=== PATIENT | male | born 1940 | race Caucasian/White ===

== ENCOUNTER 2018-03-29 10:20 | Day surgery (SDC) | payer MEDICARE, SELFPAY ==
[2018-03-29] VITALS (7 sets, daily range): BP systolic 105–116; BP diastolic 59–84; PULSE 53–81; RESP 16; TEMP 36.2–36.9; O2SAT 92–96; BMI 25.9
--- NOTE | 2018-03-29 10:32 | EKG12_ITS ---
Test Reason : PREOP Blood Pressure : / mmHG Vent. Rate : 083 BPM Atrial Rate : 394 BPM P-R Int : 000 ms QRS Dur : 090 ms QT Int : 374 ms P-R-T Axes : 000 -33 -13 degrees QTc Int : 439 ms Atrial fibrillation with premature ventricular or aberrantly conducted complexes Left axis deviation Nonspecific ST abnormality , probably digitalis effect Abnormal ECG Confirmed by KANE MARTINEZ, MINDY ([id number]), script editor BRICE LOZADA ([id number]) on 04/03/2018 4:08:41 PM Referred By: Parth Boyer Confirmed By:MINDY MIDDLETON MD
[2018-03-29 10:52] LABS: Hematocrit 48.5 % (40-54); Mean Corpuscular Hgb 30.5 pg (27.0-32.0); Mean Corpuscular Volume 92.6 fL (80-94); Mean Platelet Vol. 9.8 fl (6.2-12.0); Platelet Count 149 K/mm3 (150-450); RBC Distribution Width CV 12.8 % (11.6-14.6); RBC Distribution Width SD 43.2 fl (35.1-43.9); Red Blood Count 5.24 M/mm3 (4.6-6.2); White Blood Count 7.5 K/mm3 (4.4-11.0)
[2018-03-29 10:54] LABS: Scan Indicated on CBC? Y/N NO
[2018-03-29 11:03] LABS: International Normalized Ratio 1.4; Prothrombin Time (Protime)PT. 16.8 SECONDS (11.7-14.9)
[2018-03-29 11:06] LABS: Anion Gap 6 (5-15); BUN 14 mg/dL (7-18); BUN/Creat Ratio 12.7 RATIO (10-20); Chloride 107 mmol/L (98-107); EST Glomerular Filtration Rate 69 mL/min (>60); Est Glom Filt Rate - Afr Amer 83 mL/min (>60); Estimated Creatinine Clearance 58.07 ml/min; Glucose 93 mg/dL (74-106); Sodium Level 144 mmol/L (136-145)
--- NOTE | 2018-03-29 11:57 | PCM.DC.GS ---
Discharge Diet: Light diet - advance as tolerated - if you have questions about your diet instructions, please talk to you doctor. Discharge Activity: May not drive while taking narcotic pain medications., May Not Shower May shower in (days): 7 - after drain removed Lifting Restrictions: 10 pounds Additional Activity Instructions:: Drain care as instructed. Please keep the right chest dressings clean and dry. Call your doctor if your incision/area has: Continuous Slow Oozing, Sudden Increased Bleeding, Increased Pain/ Swelling, Increased Redness, Foul Smelling Discharge Call your doctor if you observe: Fever of 101 or Higher Suture Line Care: Avoid Pulling/Pushing, Avoid Pinching/Bending Additional Dressing/Incision Instructions:: Empty, measure and record the drain output and bring that into your office visit. You may remove the dressing if there is signs of irritation and then cleanse the drain site with a Q-tip and peroxide and reapply a dry gauze dressing. You may resume your Coumadin on , March 30, 2018 Allergies/Adverse Reactions: Allergies bee venom protein (honey bee) Allergy (Verified 03/29/18 10:47) Swelling Sulfa (Sulfonamide Antibiotics) Allergy (Verified 03/29/18 10:47) Hives Medications to take at Discharge Donepezil HCl [Aricept] 5 mg PO QHS 06/01/13 biotin 5,000 mcg disintegrating tablet 5,000 mcg PO QDAY 03/08/18 lactobacillus combination no.8 3 billion cell capsule 1 cap PO QDAY 03/08/18 multivitamin capsule 1 cap PO QDAY 03/08/18 omega-3 fatty acids 1,000 mg capsule 1,000 mg PO QDAY 03/08/18 saw palmetto 500 mg capsule 160 mg PO DAILY 03/08/18 simvastatin 10 mg tablet 10 mg PO QPM 03/08/18 vitamin E 200 unit capsule 400 unit PO QDAY 03/08/18 warfarin 5 mg tablet 5 mg PO MOFR 03/08/18 Calcium Citrate/Magnesium/D3 [Calcium Citrate Chewable Wafer] 1 each PO BID 03/22/18 Diltiazem CD [Cardizem CD] 120 mg PO QHS 03/22/18 Warfarin [Coumadin] 2.5 mg PO SUTUWETHSA 03/22/18 Hydrocodone Bitart/Apap 5-325 [[place] 5MG-325MG] 1 tablet PO Q6H PRN PRN 2 Days #5 tablet 03/29/18 The following prescriptions were given: Hydrocodone Bitart/Apap 5-325 [[place] 5MG-325MG] 1 tablet PO Q6H PRN PRN 2 Days #5 tablet PRN Reason: Pain Primary Care Physician: Roberto Carlos Boyer III, MD [Primary Care Provider] - Test Results: Test results from this visit will be discussed in further detail at your follow-up appointment, if applicable. Please Follow Up With: Parth Boyer MD - [phone] When: Call to make an appointment to be seen on Tuesday
[2018-03-29] MEDS: Bupivacaine Mpf 0.5% 30 ML VIAL (12:09)
--- NOTE | 2018-03-29 12:30 | MASS_PTH ---
PATIENT: JEROMY LOZADA LOC: [facility] [place] U#:[id number] AGE/SX: 77/M ROOM: RE03/29/[address]: Dr. Parth Boyer MD : 1940 BED: DIS: 03/29/2018 SPEC #: [id number] RECD: 03/29/18 14:24 STATUS: MYESHA BRII #: [id number] RASHEED: 03/29/18 12:[address]: Parth Boyer DEPT: SURGICAL PATHOLOGY RECD BY: Arun Camarillo ENTERED: 03/29/18 14:35 SP TYPE: Mass OTHR DR: Dr. Roberto Carlos Boyer III, MD Tissues: Flank, NOS Procedures: Surgery Specimen Level III HEADER OPERATION: Excision subcutaneous mass, right flank PRE-OP DIAGNOSIS: Subcutaneous mass, right flank TISSUE SUBMITTED: Subcutaneous mass right flank, suture enrique lateral aspect of transverse ellipse MICROSCOPIC DIAGNOSIS Subcutaneous mass, right flank, excision: Consistent with fibrolipoma. SJ:aarti 03/31/18 COMMENT Case has been reviewed in consultation with Dr. Harvey who concurs with the above diagnosis. IDC:AM MICROSCOPIC DESCRIPTION Slides are reviewed. GROSS DESCRIPTION Received in fixative is one container labeled with the patient's name and designated right subcutaneous mass, suture in lateral aspect of transverse ellipse. The specimen consists of a piece of lobulated adipose tissue measuring 15 x 13 x 8 cm. The overlying skin ellipse measures 13 x 2 cm. The skin ellipse is identified as the lateral margin. The specimen is inked as follows: superior margin ? blue, inferior margin ? green, anterior surface ? yellow, posterior surface ? black, medial margin ? red, lateral margin ? orange. Sections reveal yellow adipose cut surfaces without area of hemorrhage, necrosis or cystic degeneration. Paperhanger Supervisor sections are submitted in eight cassettes. Cassette 4 contains the overlying skin. Sections will be submitted after additional fixation. / PREM:aarti 03/29/18 TC:1 CPT: 03708
--- NOTE | 2018-03-29 13:17 | PCM.OPRPT ---
Problem List (1) Mass of subcutaneous tissue of back Status: Acute Report of Operation Date of Procedure: 03/29/18 Pre-Operative Diagnosis: Right flank large subcutaneous mass Post-Operative Diagnosis: Large right flank subcutaneous mass Surgery/Procedure Performed:: Excision large right flank subcutaneous mass Description of Surgical Findings:: Timeout informed consent was obtained. 77-year-old gentleman was taken the operating. He was placed in the left lateral decubitus position. He underwent monitored anesthesia care with local anesthetic. The right flank was sterilely prepped and draped. 20 cc of 0.5% lidocaine and 18 cc of 50-50 mixture of 1% lidocaine mixed with 0.5% Marcaine was used as local anesthetic. A wide circumferential block of the area was performed. A transverse slightly oblique elliptical excision including skin was performed and then electrocautery was used to perform the majority of the dissection. The mass measured 14 x 12 x 4 cm. Hemostasis was then obtained with multiple interrupted 3-0 Vicryl and electrocautery were needed. The flaps then were secured to the chest wall with multiple interrupted 3-0 Vicryl sutures. A 10 round ISIDRO drain was placed also to the subcutaneous wound and exited through a stab incision inferior and lateral to the incision. It was secured skin with interrupted 3-0 nylon. The drain was shortened to length as appropriate. The wound was then further closed in layers with the subcutaneous sutures of interrupted 3-0 Vicryl. The skin edges were approximated with multiple simple and mattress sutures of 3-0 nylon. Telfa 4 x 4 pressure dressing applied. Sponge and instrument and needle count were reported to the surgeon to be correct. Blood loss was minimal. He tolerated the procedure well was taken to the recovery room in satisfactory condition without apparent complication. Specimens includes a large right subcutaneous mass. Drains 10 round ISIDRO. Blood loss minimal. Parth Boyer M.D., F.A.C.S. Type of Anesthesia:: Local MAC Anesthesiologist: David Aguirre
== END 2018-03-29 15:18 | disposition home or self-care (01) ==
LOC: SDC 10:21 → AC 10:25
PROVIDERS: Family Provider Family Medicine; PCP Family Medicine; Visit Provider Surgery
PROC: (CPT 21931; principal; 2018-03-29 12:15)
DX: D17.1 Benign lipomatous neoplasm of skin and subcutaneous tissue of trunk (principal); I48.91 Unspecified atrial fibrillation; E78.5 Hyperlipidemia, unspecified; G47.30 Sleep apnea, unspecified; Z87.891 Personal history of nicotine dependence; Z79.01 Long term (current) use of anticoagulants; Z79.899 Other long term (current) drug therapy
CPT/HCPCS: 00300; 21931; 36415; 80048; 85027; 85610; 88304; 88305; 93005; J7120

== ENCOUNTER → 2019-01-17 10:06 | Outpatient (CLI) | payer MEDICARE, SELFPAY ==
[2018-03-29 10:54] VITALS: BMI 25.9
[2019-01-17 10:41] LABS: International Normalized Ratio 2.4; Prothrombin Time (Protime)PT. 26.2 SECONDS (11.7-14.9)
== END ==
PROVIDERS: Family Provider Family Medicine; PCP Family Medicine; Referring Provider Family Medicine; Visit Provider Family Medicine
DX: I48.91 Unspecified atrial fibrillation (principal)
CPT/HCPCS: 85610

== ENCOUNTER → 2019-04-06 13:55 | Outpatient (CLI) | payer MEDICARE, SELFPAY ==
[2019-03-20 13:30] VITALS: BMI 25.1
--- NOTE | 2019-04-06 13:57 | ECHOD_ITS ---
Reason For Study: Afib/Flutter Procedure This was a 2D Doppler, Color Flow transthoracic echocardiogram. Contrast injection was performed. Exam performed in department. Left Ventricle Normal size and thickness. The estimated ejection fraction is 65 %. Unable to assess diastolic dysfunction. No regional wall motion abnormalities noted. Right Ventricle Moderately dilated right ventricle. Normal systolic function. Atria The left atrium is severely enlarged. The right atrium is severely enlarged. Normal atrial septum. Bubble contrast study negative for right to left interatrial shunt. Mitral Valve Mild focal mitral valve thickening. Mild (1+) mitral valve insufficiency. Tricuspid Valve Normal tricuspid valve. Trivial tricuspid valve insufficiency. Right ventricular systolic pressure estimated to be 36 mmHg. Aortic Valve Trisinus/trileaflet aortic valve. Mild focal aortic valve thickening. Trivial aortic valve insufficiency. Pulmonic Valve Normal pulmonic valve. Mild (1+) pulmonic valve insufficiency. Great Vessels Normal aortic root. Mild atherosclerosis of the aortic arch. Normal inferior vena cava. Inferior vena cava collapse with sniff. Pericardium/Pleural No pericardial effusion. Medication 22 gauge I.V. with prn adaptor inserted into right arm. Performed a rapid injection of agitated mix of 9 cc saline and 1cc air to assess for atrial septal defect. MMode/2D Measurements & Calculations LVIDd: 4.2 cm IVSd: 1.2 cm Ao root diam: 3.5 cm LVIDs: 2.7 cm LVPWd: 1.2 cm LA dimension: 4.2 cm RVDd: 4.0 cm FS: 35.5 % LAV(MOD-bp): 72.8 ml LA A4 area: 24.5 cm2 RA A4 area: 22.7 cm2 LAV(MOD-bp) Indexed: 36.9 ml/m2 LAV(MOD-sp2): 72.8 ml LAV(MOD-sp4): 73.2 ml Time Measurements MV dec time: 0.23 sec Doppler Measurements & Calculations MV E max mateusz: 119.7 cm/sec Lat Peak E' Mateusz: 9.9 cm/sec Med Peak E' Mateusz: 6.6 cm/sec MV A max mateusz: 24.3 cm/sec E/E' lat: 12.1 E/E' med: 18.0 MV E/A: 4.9 MV V2 max: 121.3 cm/sec MV P1/2t max mateusz: 122.3 cm/sec Ao V2 max: 106.4 cm/sec MV max P.9 mmHg MV P1/2t: 99.2 msec Ao max P.5 mmHg MV V2 mean: 61.1 cm/sec MV dec slope: 361.1 cm/sec2 Ao V2 mean: 80.4 cm/sec MV mean P.9 mmHg Ao mean P.8 mmHg MV V2 VTI: 29.9 cm MVA(P1/2t): 2.2 cm2 Ao V2 VTI: 20.9 cm AI max mateusz: 358.1 cm/sec LV V1 max: 90.1 cm/sec MR max mateusz: 444.7 cm/sec AI max P.3 mmHg LV V1 max P.2 mmHg MR max P.1 mmHg AI dec slope: 152.9 cm/sec2 LV V1 mean P.5 mmHg MR mean mateusz: 354.8 cm/sec AI P1/2t: 685.8 msec LV V1 mean: 56.2 cm/sec MR mean P.9 mmHg LV V1 VTI: 17.6 cm MR VTI: 143.0 cm PA V2 max: 97.3 cm/sec TR max mateusz: 230.1 cm/sec PI dec slope: 191.6 cm/sec2 TR max P.2 mmHg Interpretation Summary The estimated ejection fraction is 65 %. Unable to assess diastolic dysfunction. Moderately dilated right ventricle. The left atrium is severely enlarged. The right atrium is severely enlarged. Bubble contrast study negative for right to left interatrial shunt. Mild (1+) mitral valve insufficiency. Trivial tricuspid valve insufficiency. Right ventricular systolic pressure estimated to be 36 mmHg. Trivial aortic valve insufficiency. Compared to echo report dated 03/13/2010, LV function has remained the same, but AI has improved from 1-2+ to trivial AI. Pt appears to be in atrial fibrillation. Ordering Physician: Vish Zavala Referring Physician: ANA Boyer M.D. Performed By: Matt Delatorre RCS
== END ==
PROVIDERS: Family Provider Family Medicine; PCP Family Medicine; Referring Provider Internal Medicine Cardiovascular Disease; Visit Provider Internal Medicine Cardiovascular Disease
DX: I48.91 Unspecified atrial fibrillation (principal); E78.5 Hyperlipidemia, unspecified; G47.33 Obstructive sleep apnea (adult) (pediatric); Z79.01 Long term (current) use of anticoagulants
CPT/HCPCS: 93306; A4216

== ENCOUNTER → 2019-04-11 09:29 | Outpatient (CLI) | payer MEDICARE, SELFPAY ==
[2019-03-20 13:30] VITALS: BMI 25.1
--- NOTE | 2019-04-11 09:30 | STEWCON_ITS ---
Reason For Study: Atrial Fibrillation Stress Results Protocol: Venu Protocol Maximum Predicted HR: 142 bpm Target HR: 121 bpm % Maximum Predicted HR: 106 % DurationHeart Rate Stage (mm:ss) (bpm) BP Comment Baseline 86 118/76No Chest Pain; Diluted Definity 2 ML Given Venu Protocol Stage I 3:00 130 124/76No Chest Pain Venu Protocol Stage II 3:00 150 130/64No Chest Pain Venu Protocol Stage III 0:30 142 / No Chest Pain Recovery 92 102/60No Chest Pain Stress Duration: 6:30 mm:ss Maximum Stress HR: 150 bpm METS: 8 Baseline Echocardiogram Findings The estimated ejection fraction is 65 %. Stress Echo Wall motion Data Resting WM Intermediate WM Stress WM Resting Wall Motion Wall Motion Stress No regional wall motion No regional wall motion abnormalities noted. abnormalities noted. EKG Data Atrial fibrillation with controlled ventricular response. The patient exercised according to the regular Venu protocol for a total duration of 6:30. The maximum heart rate attained was 153 beats per minute. This was 107% of maximum predicted heart rate. The patient exercised into stage 3 of the Venu protocol. During stress, there were no ST or T wave changes noted to suggest ischemia. No clinical angina was noted. Interpretation Summary The estimated ejection fraction is 65 %. Normal, adequate, treadmill echocardiogram. Negative for ischemia by EKG and echocardiographic criteria. No anginal symptoms noted. Patient had baseline atrial fibrillation which persisted throughout the study. Rare PVCs versus aberrant beats at peak exercise. Appropriate blood pressure response to exercise. Average exercise capacity for age. Final LVEF of 75%. Test terminated due to fatigue. Decreased sensitivity due to poor echo windows requiring Definity agent as well as atrial fibrillation. No complications. The study was technically difficult. Contrast injection was performed. Ordering Physician: Vish Zavala Referring Physician: Roberto Carlos Boyer III Performed By: Sharon Leone, [place], RVT
== END ==
PROVIDERS: Family Provider Family Medicine; PCP Family Medicine; Referring Provider Internal Medicine Cardiovascular Disease; Visit Provider Internal Medicine Cardiovascular Disease
DX: I48.91 Unspecified atrial fibrillation (principal); I48.92 Unspecified atrial flutter; I35.1 Nonrheumatic aortic (valve) insufficiency; E78.5 Hyperlipidemia, unspecified; G47.33 Obstructive sleep apnea (adult) (pediatric); Z79.01 Long term (current) use of anticoagulants
CPT/HCPCS: 93017; 93350; Q9957; A4216; C8928

== ENCOUNTER → 2019-10-15 09:15 | Outpatient (CLI) | payer MEDICARE, SELFPAY ==
[2019-10-05 13:27] VITALS: BMI 25.2
[2019-10-15 10:46] LABS: AST(SGOT) 20 U/L (15-37); Alanine Aminotransfer ALT/SGPT 25 U/L (16-61); Albumin, Serum 3.6 g/dL (3.2-5.0); Alkaline Phosphatase 65 U/L (45-117); Bilirubin, Direct 0.18 mg/dL (0.00-0.30); Cholesterol 175 mg/dL (200); Globulin 3.5 g/dL (2.2-4.2); High Density Lipoprotein 53 mg/dL; Protein, Total 7.1 g/dL (6.4-8.2); Triglycerides 92 mg/dL; Very Low Density Lipoprotein 18 mg/dL (5-40)
== END ==
PROVIDERS: PCP Family Medicine; Referring Provider Internal Medicine Cardiovascular Disease; Visit Provider Internal Medicine Cardiovascular Disease
DX: E78.5 Hyperlipidemia, unspecified (principal)
CPT/HCPCS: 36415; 80061; 80076

== ENCOUNTER → 2020-12-03 09:19 | Outpatient (CLI) | payer MEDICARE, SELFPAY ==
[2020-10-24 13:17] VITALS: BMI 25.0
== END ==
PROVIDERS: PCP Family Medicine; Referring Provider Nurse Practitioner Family; Visit Provider Nurse Practitioner Family
DX: I48.91 Unspecified atrial fibrillation (principal); R00.0 Tachycardia, unspecified
CPT/HCPCS: 93225; 93226

== ENCOUNTER 2021-05-26 06:25 | Day surgery (SDC) | payer MEDICARE, SELFPAY ==
[2021-05-26] VITALS (7 sets, daily range): BP systolic 89–110; BP diastolic 66–86; PULSE 50–79; RESP 16; TEMP 36.2–36.9; O2SAT 95–99; BMI 23.8
--- NOTE | 2021-05-26 06:54 | HP.PCM_ITS ---
History and Physical Date of Admission: 05/26/21 Visit Reasons: C-Scope Chief Complaint: c-scope Gas Meter Reader Required: No Is patient in pain?: No Allergies bee venom protein (honey bee) Allergy (Severe, Verified 05/19/21 13:20) Anaphylaxis Sulfa (Sulfonamide Antibiotics) Allergy (Severe, Verified 05/19/21 13:20) Hives atorvastatin [From Lipitor] Adverse Reaction (Severe, Verified 05/19/21 13:20) Myalgias, Rash rivastigmine [From Exelon] Adverse Reaction (Severe, Verified 05/19/21 13:20) Mental status change Medications donepezil 5 mg PO QHS 06/01/13 [History Confirmed 05/19/21] lactobacillus combination no.8 3 billion cell capsule 1 cap PO QDAY 03/08/18 [History Confirmed 05/19/21] multivitamin 1 cap PO QDAY 03/08/18 [History Confirmed 05/19/21] omega-3 fatty acids 1,000 mg capsule 1,000 mg PO QDAY 03/08/18 [History Confirmed 05/19/21] simvastatin 10 mg tablet 10 mg PO QPM 03/08/18 [History Confirmed 05/19/21] ascorbate calcium (vitamin C) 500 mg tablet 500 mg PO DAILY 03/14/19 [History Confirmed 05/19/21] saw palmetto 160 mg capsule 160 mg PO DAILY cap 03/14/19 [History Confirmed 05/19/21] biotin 5,000 mcg disintegrating tablet 10,000 mcg PO DAILY 03/20/19 [History Confirmed 05/19/21] vitamin E (dl, acetate) 180 mg (400 unit) capsule 400 unit PO DAILY 03/20/19 [History Confirmed 05/19/21] vitamins-lipotropics 200 mg-100 mg tablet tab PO tab 03/20/19 [History Confirmed 05/19/21] selenium 100 mcg tablet 100 mcg PO DAILY #1 tab 04/18/20 [Rx Confirmed 05/19/21] calcium carb-magnesium oxide-vit D3 400 mg-167 mg-133 unit tablet tab PO 10/24/20 [History Confirmed 05/19/21] diltiazem HCl 120 mg capsule,extended release 24 hr 120 mg PO QHS #90 cap 01/14/21 [Rx Confirmed 05/19/21] warfarin 5 mg tablet 5 mg PO .COMPLEX tab 04/14/21 [History Confirmed 05/19/21] PFSH Medical History Diverticulosis of colon Hemorrhoids Hyperlipidemia FPC current use of anticoagulant Longstanding persistent atrial fibrillation Memory loss Mild cognitive impairment Obstructive sleep apnea Surgical History History of appendectomy History of cataract surgery History of colonoscopy Family History Father Cancer lung Grandfather CAD (coronary artery disease) Social History Smoking Status: Former smoker how long ago did patient quit smokin + years ago alcohol intake: never substance use type: does not use caffeine: Yes Type: coffee Number of servings: 4 HPI HPI HPI: JEROMY LOZADA, is a 80 M who presents to the office today for surgical consultation regarding colonoscopy. The patient is referred by Dr. Asa cox and a written copy of my surgical consult recommendations will return to him. My most recent assistance with the patient was March 29, 2018 where I removed a subcutaneous lipoma from his back. May 06, 2016 he had a colonoscopy because of a personal history of colon polyps. That was performed by Dr. Manuel Schmitt. A 15 mm polyp was seen in the mid ascending colon. A 5 mm polyp in the proximal transverse colon. Diverticulosis identified. 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 The mid ascending colon polyp was a tubulovillous adenoma. The proximal transverse colon polyp with tubular adenoma. It is of note that the patient is on chronic Coumadin therapy for chronic atrial fibrillation. Dr. Tadeo Kaye is his ware carrier. It is of note that for over 5 years the patient has had very loose stools. He has urgency need to go to the bathroom. He will need to be close to the restroom. Both the patient and his state that he never was on any treatment for his collagenous colitis. He denies any bright red blood per rectum. ROS General General: Yes fatigue; No weight change, appetite, colon cancer, breast cancer or weakness HEENT HEENT: No difficulty swallowing, eye injury, eye surgery, swollen glands or hoarseness Endo Endocrine: No thyroid disease, diabetes mellitus, thyroid cancer, Hair loss, heat intolerance or cold intolerance Skin Skin: No rash or changing moles Breast Breast: No left breast lump, right breast lump, nipple discharge, breast pain, abnormal mammogram, abnormal US or breast enlargement Musc Musculoskeletal: No back problems, arthritis, rheumatoid arthritis, gout or joint pain Cardio Cardiovascular: Yes atrial fibrillation; No murmur, pacemaker, heart disease, high blood pressure, heart attack, heart stent, palpitations, shortness of breat with exertion or chest pain Psych Psychiatric: No depression, anxiety or hearing voices Resp Respiratory: No shortness of breath, No sleep apnea, No cough, No COPD, No asthma, No emphysema and No wheezing Gastro Gastrointestinal: No abdominal pain, No nausea or vomiting, No diarrhea, No constipation, No blood in stool, No acid reflux, No hemorrhoids, No ulcers, No gallbladder problem and No black,tarry stools Clay Hematologic: Yes blood thinners, No blood disorders, No bleeding, No anemia and No blood clots Neuro Neurologic: No system reviewed and no additional complaints, except as documented, No as per HPI, No abnormal gait, No abnormal hearing, No abnormal movements, No abnormal speech, No behavioral changes, No burning sensations, No confusion, No convulsions, No disequilibrium, No dizziness, No localized weakness, No frequent falls, No headache(s), No lack of coordination, No loss of vision, No memory loss, No numbness, No other visual disturbances, No radicular pain, No restless legs, No sensory deficit, No syncope, No tingling, No tremor(s), No weakness and No other Exam Const General: cooperative and comfortable Nutritional Appearance: average body habitus Orientation: alert and awake [facility] Head: normal to inspection Chest Chest palpation & inspection: normal inspection of the chest Resp Effort & Inspection: normal respiratory effort Auscultation: clear to auscultation bilaterally Cardio Rate: regular rate Rhythm: regular rhythm GI Palpation: soft and no hepatosplenomegaly Auscultation: normal bowel sounds Musc Cervical Spine: normal cervical lordosis Neuro General: patient alert and patient awake Extrem General: no calf tenderness Psych Appearance: grossly normal Assessment and Plan Assessment and Plan (1) Personal history of colonic polyps: Status: Acute (2) Collagenous colitis: Status: Acute (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 Parth Boyer MD: Patient has a urgent postprandial stools and looser diarrheal stools. He has had previous biopsy-proven collagenous colitis but has never been on medical treatment. He has had a tubulovillous adenoma of the ascending colon as well as additional tubular adenomas. He is on warfarin for chronic anticoagulation for atrial fibrillation I recommend that he hold his warfarin for 4 days. I recommend a colonoscopy with possible biopsy or polypectomy as indicated. Because of his medical comorbidities I anticipate utilizing monitored anesthesia care. Because of his previous biopsy-proven collagenous colitis and ongoing bowel complaints I recommend random colonic biopsies as well. He has had an opportunity to ask and have questions answered. I very much appreciate the kind opportunity of assisting with surgical care. Copy: Dr. Asa Boyer M.D., F.A.C.S. I have re-examined the patient. There are no clinical changes since date of exam.
[2021-05-26 06:55] LABS: INR Fingerstick 1.2; Prothrombin Time Fingerstick 14.3 SEC (11.9-14.4)
[2021-05-26] MEDS: Lactated Ringers 1,000 ML 100 ML IV (07:14)
--- NOTE | 2021-05-26 07:30 | COLBX_PTH ---
PATIENT: JEROMY LOZADA LOC: [facility] U#:[id number] AGE/SX: 80/M ROOM: RE05/26/[address]: Dr. Parth Boyer MD : 1940 BED: DIS: 05/26/2021 SPEC #: [id number] RECD: 05/26/21 09:15 STATUS: MYESHA BRII #: [id number] RASHEED: 05/26/21 07:[address]: Parth Boyer DEPT: SURGICAL PATHOLOGY RECD BY: Lily De Luna ENTERED: 05/26/21 12:03 SP TYPE: COLON BX ULICES DR: Dr. Asa Gonsalez MD Tissues: A - COLON BIOPSY B - Ascending colon C - Transverse colon Procedures: Trichrome (control) Special Stain Group II Surgery Specimen Level IV HEADER OPERATION: Colonoscopy (MAC) PRE-OP DIAGNOSIS: History of polyps, collagenous colitis TISSUE SUBMITTED: A ? Random biopsies, B ? Proximal ascending colon polyp, C ? Mid transverse colon polyp MICROSCOPIC DIAGNOSIS A. Colon, random biopsy: Fragments of colonic mucosa with changes consistent with collagenous colitis. See comment. B. Proximal ascending colon polyp, biopsy: Fragments of tubular adenoma. C. Mid transverse colon polyp, biopsy: Fragments of tubular adenoma. SJ:rg 05/27/2021 COMMENT A. Trichrome stain with matched control is used in the evaluation of the specimen and shows thickening of subepithelial collagen band, consistent with collagenous colitis. MICROSCOPIC DESCRIPTION Slides are reviewed. GROSS DESCRIPTION A - Received in fixative is one container labeled with the patient's name and designated random biopsy. The specimen consists of multiple irregular fragments of light mcgowan soft tissue that in aggregate measure 2 x 0.5 x 0.1 cm. The specimen is totally submitted in one cassette. B - Received in fixative is one container labeled with the patient's name and designated proximal ascending colon polyp. The specimen consists of multiple irregular fragments of light mcgowan soft tissue that in aggregate measure 2 x 0.5 x 0.1 cm. The specimen is totally submitted in one cassette. C - Received in fixative is one container labeled with the patient's name and designated mid transverse colon polyp. The specimen consists of two irregular fragments of light mcgowan soft tissue that in aggregate measure 1 x 0.2 x 0.1 cm. The specimen is totally submitted in one cassette. / AM:aarti 05/26/21 TC:1 CPT: 87259 x3, 73031
--- NOTE | 2021-05-26 08:01 | OP.COLON_ITS ---
Patient Name: Roni Lyles Procedure Date: 05/26/2021 7:31 AM Date of : 1940 Age: 80 Procedure: Colonoscopy Indications: High risk colon cancer surveillance: Personal history of colonic polyps Providers: Parth Boyer MD Medicines: See the Anesthesia note for documentation of the administered medications Patient Profile: Last Colonoscopy: April 2016. Complications: No immediate complications. Procedure: Pre-Anesthesia Assessment: - Prior to the procedure, a History and Physical was performed, and patient medications and allergies were reviewed. The patient's tolerance of previous anesthesia was also reviewed. The risks and benefits of the procedure and the sedation options and risks were discussed with the patient. All questions were answered, and informed consent was obtained. Prior Anticoagulants: The patient has taken Coumadin (warfarin), last dose was 4 days prior to procedure. ASA Grade Assessment: III - A patient with severe systemic disease. After reviewing the risks and benefits, the patient was deemed in satisfactory condition to undergo the procedure. After I obtained informed consent, the scope was passed under direct vision. Throughout the procedure, the patient's blood pressure, pulse, and oxygen saturations were monitored continuously. The pediatric colonoscope was introduced through the anus and advanced to the cecum, identified by appendiceal orifice and ileocecal valve. The colonoscopy was performed without difficulty. The patient tolerated the procedure well. The quality of the bowel preparation was good. The ileocecal valve and the appendiceal orifice were photographed. Scope In: 7:38:15 AM Scope Withdrawal Time 0 hours 11 minutes 44 seconds Scope Out: 7:54:21 AM Total Procedure Duration Time 0 hours 16 minutes 6 seconds Findings: The digital rectal exam findings include anal stricture. Pertinent negatives include normal prostate (size, shape, and consistency). A 10 mm polyp was found in the proximal ascending colon. The polyp was sessile. The polyp was removed with a hot snare. Resection and retrieval were complete. A 8 mm polyp was found in the mid transverse colon. The polyp was sessile. The polyp was removed with a hot snare. Resection and retrieval were complete. Multiple diverticula were found in the sigmoid colon and descending colon. Biopsies for histology were taken with a cold forceps from the entire colon for evaluation of microscopic colitis. Impression: - Anal stricture found on digital rectal exam. - One 10 mm polyp in the proximal ascending colon, removed with a hot snare. Resected and retrieved. - One 8 mm polyp in the mid transverse colon, removed with a hot snare. Resected and retrieved. - Diverticulosis in the sigmoid colon and in the descending colon. - Biopsies were taken with a cold forceps from the entire colon for evaluation of microscopic colitis. Recommendation: - Discharge patient to home. - Resume previous diet. - Continue present medications. - Telephone my office for pathology results in 1 week. - Repeat colonoscopy in 5 years for surveillance. Procedure Code(s): --- Professional --- 54173, Colonoscopy, flexible; with removal of tumor(s), polyp(s), or other lesion(s) by snare technique 04005, 59, Colonoscopy, flexible; with biopsy, single or multiple Diagnosis Code(s): --- Professional --- Z86.010, Personal history of colonic polyps K62.4, Stenosis of anus and rectum D12.2, Benign neoplasm of ascending colon D12.3, Benign neoplasm of transverse colon (hepatic flexure or splenic flexure) K57.30, Diverticulosis of large intestine without perforation or abscess without bleeding CPT copyright 2017 [employer]. All rights reserved. The codes documented in this report are preliminary and upon draw frame operator review may be revised to meet current compliance requirements. Parth Boyer MD 05/26/2021 8:00:26 AM This report has been signed electronically. Number of Addenda: 0 Note Initiated On: 05/26/2021 7:31 AM
--- NOTE | 2021-05-26 08:02 | OP.CCLET_ITS ---
05/26/2021 Asa Gonsalez [address] [place] [address] Re : Colonoscopy procedure for Roni Lyles Dear Dr. Gonsalez This procedure was performed on Wednesday, May 26, 2021. My impressions and recommendations are as follows: Impressions : - Anal stricture found on digital rectal exam. - One 10 mm polyp in the proximal ascending colon, removed with a hot snare. Resected and retrieved. - One 8 mm polyp in the mid transverse colon, removed with a hot snare. Resected and retrieved. - Diverticulosis in the sigmoid colon and in the descending colon. - Biopsies were taken with a cold forceps from the entire colon for evaluation of microscopic colitis. Recommendations : - Discharge patient to home. - Resume previous diet. - Continue present medications. - Telephone my office for pathology results in 1 week. - Repeat colonoscopy in 5 years for surveillance. My findings are described in the full procedure note, which is enclosed. If I can be of further assistance, please feel free to contact me at Doctor phone number(s): Work: . Sincerely, Parth Boyer MD 05/26/2021 8:00:26 AM This report has been signed electronically.
== END 2021-05-26 08:56 | disposition home or self-care (01) ==
LOC: EN 06:27 → AC 06:27
PROVIDERS: PCP Family Medicine; Referring Provider Family Medicine; Visit Provider Surgery
PROC: 0DJD8ZZ Inspection of Lower Intestinal Tract, Via Natural or Artificial Opening Endoscopic (ICD-10-PCS; CPT 45378; principal; 2021-05-26 07:25)
DX: Z12.11 Encounter for screening for malignant neoplasm of colon (principal); K62.4 Stenosis of anus and rectum; D12.2 Benign neoplasm of ascending colon; D12.3 Benign neoplasm of transverse colon; K52.831 Collagenous colitis; K57.30 Diverticulosis of large intestine without perforation or abscess without bleeding; I48.11 Longstanding persistent atrial fibrillation; E78.00 Pure hypercholesterolemia, unspecified; G47.33 Obstructive sleep apnea (adult) (pediatric); Z79.01 Long term (current) use of anticoagulants; Z79.899 Other long term (current) drug therapy; Z86.010 Personal history of colon polyps; Z87.891 Personal history of nicotine dependence
CPT/HCPCS: 45380; 45385; 36416; 85610; 88305; 88313; J7120; J2405

== ENCOUNTER → 2023-06-01 | Outpatient (CLI) | payer MEDICARE, SELFPAY ==
--- NOTE | 2023-06-01 07:24 | ECHOD_ITS ---
Reason For Study: AFIB Procedure This was a 2D Doppler, Color Flow transthoracic echocardiogram. Exam performed in department. Left Ventricle Normal LV size. Left ventricular systolic function is normal. The estimated ejection fraction is 60 %. No regional wall motion abnormalities noted. Right Ventricle Normal RV size. Normal systolic function. Atria The left atrium is moderately enlarged. The right atrium is mildly enlarged. Mitral Valve Bileaflet diffuse mitral valve thickening. There is mild to moderate mitral annular calcification. Mild-Moderate (1-2+) eccentric mitral valve insufficiency. Tricuspid Valve Normal tricuspid valve. Mild (1+) tricuspid valve insufficiency. Pulmonary artery systolic pressure is 38 mmHg. Aortic Valve Normal aortic valve. Trisinus/trileaflet aortic valve. Mild (1+) aortic valve insufficiency. Pulmonic Valve Normal pulmonic valve. Mild (1+) pulmonic valve insufficiency. Great Vessels Normal aortic root. The pulmonary artery is normal size. Normal inferior vena cava. Pericardium/Pleural No pericardial effusion. MMode/2D Measurements & Calculations LVIDd: 4.6 cm IVSd: 0.96 cm Ao root diam: 3.6 cm LVIDs: 2.4 cm LVPWd: 1.4 cm RVDd: 4.2 cm FS: 47.5 % LAV(MOD-bp): 95.3 ml LVAd ap4: 27.3 cm2 SV(MOD-sp4): 45.1 ml LAV(MOD-bp) Indexed: 48.3 ml/m2 LVLd ap4: 7.8 cm LAV(MOD-sp2): 82.9 ml EDV(MOD-sp4): 79.6 ml LAV(MOD-sp4): 100.0 ml EDV(sp4-el): 81.3 ml LVAs ap4: 15.9 cm2 LVLs ap4: 6.2 cm ESV(MOD-sp4): 34.5 ml ESV(sp4-el): 34.4 ml EF(MOD-sp4): 56.7 % EF(sp4-el): 57.6 % SV(sp4-el): 46.9 ml LA A4 area: 29.5 cm2 LA dimension(2D): 4.3 cm RA A4 area: 23.4 cm2 TAPSE: 1.7 cm Doppler Measurements & Calculations MV E max isidra: 124.2 cm/sec Ao V2 max: 116.9 cm/sec AI max isidra: 420.0 cm/sec Ao max P.5 mmHg AI max P.6 mmHg Ao V2 mean: 80.8 cm/sec Ao mean P.0 mmHg AI dec slope: 169.0 cm/sec2 Ao V2 VTI: 26.9 cm AI P1/2t: 727.8 msec AV (velocity ratio): 0.72 LV V1 max: 89.4 cm/sec PA V2 max: 80.8 cm/sec LV V1 max P.2 mmHg PA V2 mean: 66.4 cm/sec PI dec slope: 196.1 cm/sec2 LV V1 mean P.8 mmHg LV V1 mean: 62.4 cm/sec LV V1 VTI: 19.2 cm TR max isidra: 288.2 cm/sec TR max P.2 mmHg ECHO/Echo Complete Interpretation Summary Normal LV size. Left ventricular systolic function is normal. The estimated ejection fraction is 60 %. Mild (1+) aortic valve insufficiency. Mild-Moderate (1-2+) eccentric mitral valve insufficiency. Ordering Physician: Tadeo Kaye Referring Physician: MD Sunshine Asa Performed By: Mary Arteaga RCS
--- NOTE | 2023-06-01 07:24 | CDU_ITS ---
Reason For Study: Bruit Rt. Velocities/BP Lt. Velocities/BP Prox CCA 68.3/8.8 cm/sec. Prox CCA 67.4/11.3 cm/sec. Mid CCA 67.4/10.7 cm/sec. Mid CCA 52/12.4 cm/sec. Dist CCA 65.5/9.7 cm/sec. Dist CCA 52/11.3 cm/sec. Prox ICA 28.9/9.2 cm/sec. Prox ICA 49.8/13.5 cm/sec. Mid ICA 65/19.4 cm/sec. Mid ICA 81.7/24.5 cm/sec. Dist ICA 62.1/19.4 cm/sec. Dist ICA 72.9/20.1 cm/sec. Rt. ICA/CCA = 0.96. Lt. ICA/CCA = 1.57. Prox ECA 64.5/3.1 cm/sec. Prox ECA 48.7/2.5 cm/sec. Rt. Vert. 24.9/3.7 cm/sec. Lt. Vert. 39.9/6.9 cm/sec. Right Extracranial There is intimal thickening but no significant atherosclerotic plaque noted in the right common carotid artery. There is homogeneous, smooth atherosclerotic plaque noted in the right internal carotid artery. There is intimal thickening but no significant atherosclerotic plaque noted in the right external carotid artery. Antegrade flow is noted in the right vertebral artery. Left Extracranial There is intimal thickening but no significant atherosclerotic plaque noted in the left common carotid artery. There is homogeneous, smooth atherosclerotic plaque noted in the left internal carotid artery. There is intimal thickening but no significant atherosclerotic plaque noted in the left external carotid artery. Antegrade flow is noted in the left vertebral artery. Procedure Carotid Duplex 63641. This is a Carotid Duplex examination using B-mode, color flow and specral Doppler. Exam performed in department. VL/Carotid Duplex Ultrasound Interpretation Summary Mild (<50%) stenosis right extracranial internal carotid. Mild (<50%) stenosis left extracranial internal carotid. Patent and antegrade vertebrals bilaterally. Ordering Physician: Tadeo Kaye Referring Physician: MD Sunshine Asa Performed By: Esperanza Llanos RVT
== END | disposition home or self-care (01) ==
PROVIDERS: PCP Family Medicine; Visit Provider Internal Medicine Cardiovascular Disease
DX: I48.11 Longstanding persistent atrial fibrillation (principal); R09.89 Other specified symptoms and signs involving the circulatory and respiratory systems
CPT/HCPCS: 93306; 93880

== ENCOUNTER 2024-02-24 06:43 | Day surgery (SDC) | payer MEDICARE, SELFPAY ==
--- NOTE | 2024-02-16 12:46 | EKG12_ITS ---
Test Reason : PRE OP Blood Pressure : / mmHG Vent. Rate : 075 BPM Atrial Rate : 078 BPM P-R Int : 000 ms QRS Dur : 082 ms QT Int : 390 ms P-R-T Axes : 000 -36 -08 degrees QTc Int : 435 ms Atrial fibrillation Left axis deviation Abnormal ECG Confirmed by Wili Pruitt ([id number]), supervising editor trailer PAULA LYNCH ([id number]) on 02/20/2024 9:01:36 AM Referred By: Parth Boyer Confirmed By:Wili Pruitt
[2024-02-16 13:29] LABS: Hematocrit 46.3 % (40-54); Hemoglobin 14.8 g/dL (13.0-16.5); Mean Corpuscular Hgb 30.3 pg (27.0-32.0); Mean Corpuscular Volume 94.7 fL (80-94); Mean Platelet Vol. 10.1 fl (6.2-12.0); Platelet Count 193 K/mm3 (150-450); RBC Distribution Width CV 12.6 % (11.6-14.6); RBC Distribution Width SD 43.7 fl (35.1-43.9); Red Blood Count 4.89 M/mm3 (4.6-6.2); White Blood Count 8.8 K/mm3 (4.4-11.0)
[2024-02-16 14:05] LABS: Anion Gap 3 (5-15); BUN 15 mg/dL (7-18); BUN/Creat Ratio 14.4 RATIO (10-20); Calcium,Total 9.5 mg/dL (8.5-10.1); Chloride 107 mmol/L (98-107); Creatinine, Serum 1.04 mg/dL (0.70-1.30); EST Glomerular Filtration Rate 72 mL/min (>60); Est Glom Filt Rate - Afr Amer 88 mL/min (>60); Glucose 80 mg/dL (74-106); Potassium 3.8 mmol/L (3.5-5.1); Sodium Level 140 mmol/L (136-145)
[2024-02-24] VITALS (16 sets, daily range): BP systolic 111–140; BP diastolic 61–104; PULSE 73–136; RESP 16–18; TEMP 36.1–36.6; O2SAT 89–100; BMI 22.8
[2024-02-24 06:55] LABS: INR Fingerstick 1.2; Prothrombin Time Fingerstick 13.6 SEC (11.7-14.9)
--- NOTE | 2024-02-24 07:21 | PCM.HP.BLA ---
History and Physical Date of Admission: 02/24/24 Intake Visit Reasons: Hernia Chief Complaint: inguinal hernia Elevators Inspector Required: No Is patient in pain?: No Allergies bee venom protein (honey bee) Allergy (Severe, Verified 02/10/24 09:00) AnaphylaxisSulfa (Sulfonamide Antibiotics) Allergy (Severe, Verified 02/10/24 09:00) Hivesatorvastatin (From Lipitor) Adverse Reaction (Severe, Verified 02/10/24 09:00) Myalgias, Rashrivastigmine (From Exelon) Adverse Reaction (Severe, Verified 02/10/24 09:00) Mental status change Medications ?Medication ?Instructions ?Recorded ?Confirmed ?Type donepezil 5 mg tablet 5 mg PO QHS MEMORY 06/01/13 02/10/24 History lactobacillus combination no.8 3 1 cap PO QDAY SUPPLEMENT 03/08/18 02/10/24 History billion cell capsule (Adult Probiotic) multivitamin 1 cap PO QDAY SUPPLEMENT 03/08/18 02/10/24 History omega-3 fatty acids 1,000 mg 1,000 mg PO QDAY SUPPLEMENT 03/08/18 02/10/24 History capsule (Fish Oil Concentrate) simvastatin 10 mg tablet 10 mg PO QPM CHOLESTEROL 03/08/18 02/10/24 History saw palmetto 160 mg capsule 160 mg PO DAILY 03/14/19 02/10/24 History vitamin E (dl, acetate) 180 mg 400 unit PO DAILY 03/20/19 02/10/24 History (400 unit) capsule vitamins-lipotropics 200 mg-100 mg 1 tab PO DAILY 03/20/19 02/10/24 History tablet (Lipo-Flavonoid Plus) selenium 100 mcg tablet 100 mcg PO DAILY #1 TAB 04/18/20 02/10/24 Rx calcium carb-magnesium oxide-vit 1 tab PO DAILY 10/24/20 02/10/24 History D3 400 mg-167 mg-133 unit tablet latanoprost 0.005 % eye drops 1 drp EACH EYE QHS 05/26/21 02/10/24 History cholestyramine (with sugar) 4 gram 1 ea PO DAILY 04/13/22 02/10/24 History powder for susp in a packet warfarin 5 mg tablet (Coumadin) 5 mg PO .COMPLEX BLOOD THINNER 04/13/22 02/10/24 History dorzolamide 22.3 mg-timolol 6.8 1 drp ophthalmic (eye) BID 05/10/23 02/10/24 History mg/mL eye drops diltiazem HCl 120 mg 120 mg PO QHS HEART #90 caps 01/09/24 02/10/24 Rx capsule,extended release 24 hr [facility] Medical History (Updated 02/10/24 @ 09:[address] Parth Boyer MD) Wears hearing aid Wears partial dentures Wears glasses Skin tear High cholesterol Easy bruising Excessive bleeding Back pain History of IBS Colitis Former smoker BiPAP (biphasic positive airway pressure) dependence Sleep apnea Shortness of breath on exertion Leg cramps Normal stress echocardiogram History of echocardiogram History of stress test Cardiology follow-up encounter History of atrial fibrillation Longstanding persistent atrial fibrillation Hemorrhoids Mild cognitive impairment Memory loss Diverticulosis of colon [facility] current use of anticoagulant Obstructive sleep apnea Hyperlipidemia Surgical History Hx of excision of mass History of appendectomy History of colonoscopy History of cataract surgery Family History Father Cancer lungGrandfather CAD (coronary artery disease) Social History Smoking Status: Former smoker how long ago did patient quit smokin + years ago alcohol intake: current Alcohol type: beer substance use type: does not use caffeine: Yes Type: coffee Number of servings: 4 HPI HPI HPI: 83-year-old gentleman is referred by Dr. Asa Gonsalez for surgical consultation regarding an inguinal hernia and a written copy my surgical consult recommendations will return to him. The patient had presented to Dr. Wilson with concerns of a acute 1 week history of right groin pain. It is of note that the patient does have atrial fibrillation is on chronic warfarin anticoagulation. The patient claims that he is only has noticed a bulge for 2 months. He had no history of trauma. He is no no previous hernia repair. Only. Abdominal surgery was a very remote appendectomy through a right lower quadrant oblique incision. He denies myocardial infarction or stroke. No DVT. He has had atrial fibrillation for an extended period of time. She is on chronic Coumadin treatment. He denies dysuria or nocturia ROS General General: Yes fatigue; No weight change, appetite, colon cancer, breast cancer or weakness HEENT HEENT: No difficulty swallowing, eye injury, eye surgery, swollen glands or hoarseness Endo Endocrine: No thyroid disease, diabetes mellitus, thyroid cancer, Hair loss, heat intolerance or cold intolerance Skin Skin: No rash or changing moles Breast Breast: No left breast lump, right breast lump, nipple discharge, breast pain, abnormal mammogram, abnormal US or breast enlargement [facility] [place]: Yes back problems; No arthritis, rheumatoid arthritis, gout or joint pain Cardio Cardiovascular: Yes atrial fibrillation; No murmur, pacemaker, heart disease, high blood pressure, heart attack, heart stent, palpitations, shortness of breat with exertion or chest pain Psych Psychiatric: No depression, anxiety or hearing voices Resp Respiratory: No shortness of breath, Yes sleep apnea, No cough, No COPD, No asthma, No emphysema and No wheezing Gastro Gastrointestinal: No abdominal pain, No nausea or vomiting, No diarrhea, No constipation, No blood in stool, No acid reflux, No hemorrhoids, No ulcers, No gallbladder problem and No black,tarry stools [place] Hematologic: Yes blood thinners, No blood disorders, No bleeding, No anemia and No blood clots Neuro Neurologic: No system reviewed and no additional complaints, except as documented, No as per HPI, No abnormal gait, No abnormal hearing, No abnormal movements, No abnormal speech, No behavioral changes, No burning sensations, No confusion, No convulsions, No disequilibrium, No dizziness, No localized weakness, No frequent falls, No headache(s), No lack of coordination, No loss of vision, No memory loss, No numbness, No other visual disturbances, No radicular pain, No restless legs, No sensory deficit, No syncope, No tingling, No tremor(s), No weakness and No other Exam Const General: cooperative, healthy appearing, comfortable and no acute distress [facility] Head: normal to inspection Eyes General: appearance normal, both eyes and all related structures Neck Neck: normal visual inspection Chest Chest palpation & inspection: normal inspection of the chest Resp Effort & Inspection: normal respiratory effort Auscultation: clear to auscultation bilaterally Cardio Rate: regular rate Rhythm: regular rhythm GI Inspection: normal to inspection Palpation: soft and no hepatosplenomegaly Other: Obvious sizable right inguinal hernia. It is reducible when supine. Testicles descended bilaterally. Left groin appears to be solid and intact Musc Cervical Spine: normal cervical lordosis Skin General: no rashes or lesions noted Neuro General: patient alert, patient awake and patient oriented x3 Psych Appearance: grossly normal Assessment and Plan Assessment and Plan (1) Inguinal hernia of right side without obstruction or gangrene: Status: Acute Plan: 83-year-old gentleman with a symptomatic right inguinal hernia. There is reducible bowel present. I propose for him a laparoscopic right groin hernia pair with mesh. I described the technique, benefit, risk, alternatives. We will have him hold his Coumadin 5 days preprocedure. He is very much aware that he will be required to have a postoperative period of recovery. This includes not mowing the lawn. He does not currently have any urinary symptoms. He has had an opportunity to ask and have questions answered. We will schedule procedure at his discretion. I appreciate the opportunity of assisting with the surgical care. Copy: Dr. Asa Boyer M.D., F.A.C.S. I have examined the patient and the H&P has been reviewed. There are no clinical changes since date of exam. Parth Boyer M.D., F.A.C.S.
--- NOTE | 2024-02-24 07:21 | EX.PCM.DISCH ---
Discharge Instructions Procedure General Surgery Diet Discharge Diet: Light diet - advance as tolerated (if you have questions about your diet instructions, please talk to you doctor.) Activity Discharge Activity: May Not Drive (for 3-5 days or while taking narcotic pain medicine.) May shower in (days): 1 Lifting Restrictions: 10 pounds Dressing / Incision Call your doctor if your incision/area has: Continuous Slow Oozing, Sudden Increased Bleeding, Increased Pain/ Swelling, Increased Redness and Foul Smelling Discharge Call your doctor if you observe: Fever of 101 or Higher Suture Line Care: Avoid Pulling/Pushing and Avoid Pinching/Bending Additional Dressing/Incision Instructions:: Change or remove dressing in 4 days. Leave steri-strips in place for 1 week. You may resume your Coumadin on Tuesday, February 26, 2024 as long as you are not having any swelling or bleeding issues at that time. Follow Up Care Please Follow Up With: Parth Boyer MD When: Call [phone] to make an appointment to be seen in about 10 days. Test Results: Test results from this visit will be discussed in further detail at your follow-up appointment, if applicable. Discharge Plan Admission Primary Reason for Your Visit: Right inguinal hernia Attending Provider: Parth Boyer Primary Care Provider: Asa Gonsalez Instructions Print Language: Czech Discharge Orders/Prescriptions Prescriptions: New hydrocodone-acetaminophen 5-325 mg tablet 1 tab PO Q6H PRN (Reason: pain) 2 Days Qty: 5 0RF Continued simvastatin 10 mg tablet 10 mg PO QPM omega-3 fatty acids [Fish Oil Concentrate] 1,000 mg capsule 1,000 mg PO QDAY lactobacillus combination no.8 [Adult Probiotic] 3 billion cell capsule 1 cap PO QDAY multivitamin capsule 1 cap PO QDAY warfarin [Coumadin] 5 mg tablet 5 mg PO .COMPLEX Rx Instructions: 5 mg PO Tuesday and Tuesday; 2.5 mg all other days a week Managed by Dr. Gonsalez vitamin E (dl, acetate) 400 unit capsule 400 unit PO DAILY Lipo-Flavonoid Plus 200-100 mg tablet 1 tab PO DAILY selenium 100 mcg tablet 100 mcg PO DAILY Qty: 1 0RF calcium carb-mag oxide-vit D3 400-167-133 mg-mg-unit tablet 1 tab PO DAILY cholestyramine (with sugar) 4 gram powder in packet 1 ea PO DAILY dorzolamide-timolol 22.3-6.8 mg/mL drops 1 drp ophthalmic (eye) BID Patient Comments: INSTILL ONE DROP IN THE LEFT EYE TWICE DAILY donepezil 5 MG tablet 5 mg PO QHS latanoprost 0.005 % drops 1 drp EACH EYE QHS Patient Comments: instill ONE DROP IN EACH EYE AT BEDTIME cholecalciferol (vitamin D3) [Vitamin D3] 25 mcg (1,000 unit) capsule 25 mcg PO DAILY diltiazem HCl 120 mg capsule,extended release 24hr 120 mg PO QHS Qty: 90 3RF Other Ambulatory Orders: 12 Lead EKG (Routine) Timeframe: [id number] Location: None Selected Ordered By: Dr. Parth Boyer Referrals / Follow Up: Asa Gonsalez MD [Primary Care Provider] - Disposition Disposition (needs filled in before D/C Order can be placed): Home, Self Care
[2024-02-24] MEDS: Lactated Ringers 1,000 ML 15 ML IV (07:30)
--- NOTE | 2024-02-24 08:10 | PCM.PRE.AN2 ---
ASA Classification* ASA Classification ASA Classification: 3 Assessment & Plan Anesthesia* Anesthesia Assessment Anesthesia Assessment: Discussed sedation and/or anesthesia options, risks, benefits, and alternatives with patient/parents/legal guardian/POA. Questions invited. The patient/parents/legal guardian/POA seems to understand and agrees to proceed with anesthesia plan. Reviewed the physical assessment, medical history, allergy history and patient home medications list prior to surgery/procedure/anesthetic and documented any changes. Performed airway and anesthesia risk assessments. Anesthesia Type Anesthesia Type: General (see written pre anesthesia record for full assessment) Anesthesia Focused Assessment* Temperature: 97.2 F Pulse Rate: 73 Blood Pressure: 140/85 Respiratory Rate: 16 Pulse Ox: 98 Airway Assessment Mouth opens: >3 cm Mallampati Score: II Focused Labs Anesthesia Preop lab: CBC WBC 8.8 K/mm3 (4.4-11.0) 02/16/24 12:36 RBC 4.89 M/mm3 (4.6-6.2) 02/16/24 12:36 Hgb 14.8 g/dL (13.0-16.5) 02/16/24 12:36 Hct 46.3 % (40-54) 02/16/24 12:36 Plt Count 193 K/mm3 (150-450) 02/16/24 12:36 CHEMISTRY Potassium 3.8 mmol/L (3.5-5.1) 02/16/24 12:36 Sodium 140 mmol/L (136-145) 02/16/24 12:36 BUN 15 mg/dL (7-18) 02/16/24 12:36 Creatinine 1.04 mg/dL (0.70-1.30) 02/16/24 12:36 Glucose 80 mg/dL (74-106) 02/16/24 12:36 COAG PT 26.2 SECONDS (11.7-14.9) H 01/17/19 09:45 Pre-Assessment Diagnosis/Proposed Procedure Planned Operative Procedure(s): LAPAROSCOPIC, INGUINAL HERNIA REPAIR WITH MESH Anesthesia History Anesthesia History - nursing support worker: Anesthesia History - nursing support worker Hx Hospitalization No 02/15/24 08:33 Any Problems With Anesthesia No 02/15/24 08:33 Cholinesterase deficiency No 02/15/24 08:33 You/Your Family Experience No 02/15/24 08:33 fever (hyperthermia) with Relationship Recent Exposure to Contagious No 02/24/24 07:18 Disease Does patient have nerve No 02/15/24 08:33 stimulator Patient instructed to have device shut off --Does patient have Pacemaker No 02/24/24 07:18 or ICD? When Was Last Pacemaker Check QUESTION #4 FULL TEXT: You/Your Family Experience fever (hyperthermia) with Anesthesia Last Oral Intake Last Oral intake: Last Oral Intake NPO since 00:00 02/24/24 07:18 Meds taken in AM with sips of water? Meds patient instructed to take am of surgery PONV PONV - nursing support worker: PONV - nursing support worker Female No 02/15/24 08:33 HX of Motion Sickness No 02/15/24 08:33 HX of N/V After Surgery No 02/15/24 08:33 Non-Smoker Yes 02/15/24 08:33 Duration of Surgery greater Yes 02/15/24 08:33 than 60 minutes Number of Risk Factors 2 02/15/24 08:33 PONV Score Moderate Risk 02/15/24 08:33 Height & Weight Height & Weight: Anesthesia: Height & Weight Height 5 ft 10 in 02/24/24 07:18 Weight: 72.121 kg 02/24/24 07:18 Body Mass Index (BMI) 22.8 02/24/24 07:18 Respiratory Assessment Respiratory Assessment - nursing support worker: Respiratory Tract Infection Hx - nursing support worker Hx Respiratory Tract Infection No 02/15/24 08:33 STOP Sleep Apnea STOP Sleep Apnea - nursing support worker: STOP Sleep Apnea - nursing support worker Hx Hypertension No 02/15/24 08:33 Hx Sleep Apnea Yes 02/15/24 08:33 CPAP No 02/15/24 08:33 BIPAP Yes 02/15/24 08:33 Do you snore loudly (louder than talking or can be heard Do you often feel tired/ fatigued/ sleepy during daytime? Has anyone observed you stop breathing during sleep? STOP Results Positive 02/15/24 08:33 QUESTION #5 FULL TEXT : Do you snore loudly (louder than talking or can be heard through closed doors)? Tobacco Use History Tobacco Use History - nursing support worker: Tobacco Use History - nursing support worker Tobacco Use Smoking Status Former smoker 02/15/24 08:33 Hx Tobacco Use No 02/15/24 08:33 Years Smoking Packs Smoked per Day Smoking Cessation Date was No - quit smoking greater 02/15/24 08:33 within the last 15 years than 15 years ago Hx Smoking Cessation Date 01/27/90 02/15/24 08:33 Hx Smoking Cessation Counseling Hematologic Medial History Hematologic Hx - nursing support worker: Hematologic Medical Hx - [facility] Hx of Blood Transfusion No 02/15/24 08:33 Hx of Transfusion in last 3 No 02/15/24 08:33 Months Date of Last Transfusion (if within last 3 months) Ever experience any problems No 02/15/24 08:33 with transfusion(s)? Specify any problems Hx of Preganancy in last 3 N/A 02/15/24 08:33 Months Nurse Filling Out Transfusion NBUCHER 02/15/24 08:33 & Questions: Date: 02/15/24 02/15/24 08:33 Time: 08:38 02/15/24 08:33 Patient unable to answer at this time (ie. confused, unrespo /Reproduction History /Reproductive History - nursing support worker: /Reproductive Hx- nursing support worker Hx Now No 02/15/24 08:33 Gestational Age (in weeks): EDC: Hx Hx Para Hx Section SAB No 02/15/24 08:33 Active Medications Active Medications: Current Medications Generic Name Dose Route Start Last Admin Trade Name Freq PRN Reason Stop Dose Admin Acetaminophen 650 mg 02/24/24 07:21 Acetaminophen 325 Mg Tablet PO Q6H PRN PRN Pain Score 1-10 Hydrocodone Bitart/Acetaminophen 1 - 2 tablet 02/24/24 07:21 Hydrocodone Bitartrate/Apap 5/325 Tablet PO Q4H PRN PRN Pain Score 1-10 Cefazolin Sodium 2 gm/ Sodium 110 mls @ 150 mls/hr 02/24/24 09:05 Chloride IV 02/24/24 09:48 PREOP ONE Lactated Ringer's 1,000 mls @ 15 mls/hr 02/24/24 07:00 02/24/24 07:30 IV 15 mls/hr .Q48H RILEY Administration PFSH Medical History Loss of hearing Wears hearing aid Wears partial dentures Wears glasses Skin tear High cholesterol Easy bruising Excessive bleeding Back pain History of IBS Colitis Former smoker BiPAP (biphasic positive airway pressure) dependence Sleep apnea Shortness of breath on exertion Leg cramps Normal stress echocardiogram History of echocardiogram History of stress test Cardiology follow-up encounter History of atrial fibrillation Longstanding persistent atrial fibrillation Hemorrhoids Mild cognitive impairment Memory loss Diverticulosis of colon alf current use of anticoagulant Obstructive sleep apnea Hyperlipidemia Home Medications ?Medication ?Instructions ?Recorded ?Last Taken ?Type donepezil 5 mg tablet 5 mg PO QHS MEMORY 06/01/13 05/25/21 History lactobacillus combination no.8 3 1 cap PO QDAY SUPPLEMENT 03/08/18 05/25/21 History billion cell capsule (Adult Probiotic) multivitamin 1 cap PO QDAY SUPPLEMENT 03/08/18 05/25/21 History omega-3 fatty acids 1,000 mg 1,000 mg PO QDAY SUPPLEMENT 03/08/18 05/25/21 History capsule (Fish Oil Concentrate) simvastatin 10 mg tablet 10 mg PO QPM CHOLESTEROL 03/08/18 05/25/21 History vitamin E (dl, acetate) 180 mg 400 unit PO DAILY 03/20/19 05/25/21 History (400 unit) capsule vitamins-lipotropics 200 mg-100 mg 1 tab PO DAILY 03/20/19 05/25/21 History tablet (Lipo-Flavonoid Plus) selenium 100 mcg tablet 100 mcg PO DAILY #1 TAB 04/18/20 05/25/21 Rx calcium 400 mg 1 tab PO DAILY 10/24/20 05/25/21 History (carbonate)-magnesium 167 mg (oxide)-D3 133 unit tablet latanoprost 0.005 % eye drops 1 drp EACH EYE QHS 05/26/21 05/25/21 History cholestyramine (with sugar) 4 gram 1 ea PO DAILY 04/13/22 Unknown History powder for susp in a packet warfarin 5 mg tablet (Coumadin) 5 mg PO .COMPLEX BLOOD THINNER 04/13/22 02/18/24 History dorzolamide 22.3 mg-timolol 6.8 1 drp ophthalmic (eye) BID 05/10/23 Unknown History mg/mL eye drops diltiazem HCl 120 mg 120 mg PO QHS HEART #90 caps 01/09/24 02/23/24 Rx capsule,extended release 24 hr cholecalciferol (vitamin D3) 25 25 mcg PO DAILY 02/15/24 Unknown History mcg (1,000 unit) capsule (Vitamin D3) Allergy/AdvReac Type Severity Reaction Status Date / Time bee venom protein (honey bee) Allergy Severe Anaphylaxis Verified 02/24/24 07:15 Sulfa (Sulfonamide Allergy Severe Hives Verified 02/24/24 07:15 Antibiotics) atorvastatin (From Lipitor) AdvReac Severe Myalgias, Verified 02/24/24 07:15 Rash rivastigmine (From Exelon) AdvReac Severe Mental Verified 02/24/24 07:15 status change Family History Father Cancer lung Grandfather CAD (coronary artery disease) Surgical History History of colonoscopy with polypectomy Hx of excision of mass History of appendectomy History of colonoscopy History of cataract surgery Social History Smoking Status: Former smoker how long ago did patient quit smokin + years ago alcohol intake: current Alcohol type: beer substance use type: does not use caffeine: Yes Type: coffee Number of servings: 4 Review of Systems (Anesthesia) ROS Narrative System reviewed and no additional complaints, except as documented.
--- NOTE | 2024-02-24 09:05 | HERN_PTH ---
PATIENT: JEROMY LOZADA [place] [facility] [place][id number] AGE/SX: 83/M ROOM: RE02/24/[address]: Dr. Parth Boyer MD : 1940 BED: DIS: 02/24/2024 SPEC #: [id number] RECD: 02/24/24 13:35 STATUS: MYESHA BRII #: [id number] RASHEED: 02/24/24 09:[address]: Parth Boyer DEPT: SURGICAL PATHOLOGY RECD BY: Lily De Luna ENTERED: 02/24/24 13:52 SP TYPE: Hernia OTHR DR: Dr. Asa Gonsalez MD Tissues: HERNIA Procedures: Surgery Specimen Level II HEADER OPERATION: Laparoscopic, indirect right inguinal hernia repair PRE-OP DIAGNOSIS: Inguinal hernia of right side without obstruction or gangrene TISSUE SUBMITTED: Hernia sac and contents MICROSCOPIC DIAGNOSIS Hernia sac, herniorrhaphy: Fibrofatty tissue consistent with hernia sac. AM/mr 02/27/2024 MICROSCOPIC DESCRIPTION Slides are reviewed. GROSS DESCRIPTION Received in fixative is one container labeled with the patient's name and designated Hernia sac and contents. The specimen consists of two pieces of mcgowan-yellow soft tissue measuring in aggregate 2.0 x 1.0 x 0.5cm. The entire specimen is submitted in one cassette. / 02/24/2024 TC:5 CPT:63306
[2024-02-24] MEDS: Cefazolin 2 GM in 0.9% Normal Saline (100mL Bag) 100 ML IV (10:15)
[2024-02-24] MEDS: Bupivacaine Mpf 0.5% 30 ML VIAL (11:30)
--- NOTE | 2024-02-24 11:37 | OP.PCM_ITS ---
Report of Operation Date of Procedure: 02/24/24 Pre-Operative Diagnosis: Right inguinal hernia Post-Operative Diagnosis: Indirect right inguinal hernia Umbilical hernia Surgery/Procedure Performed:: Laparoscopic right inguinal herniorrhaphy Bard 3D max extra-large mesh, lot [id number], reference [id number], expiry date 08/25/2028, secure strap Lot [id number], expiry date 07/2025 Umbilical herniorrhaphy Description of Surgical Findings:: Timeout informed consent was obtained. 83-year-old gentleman was taken to the op room placed supine on the table underwent general and tracheal intubation esthesia. Ancef 2 g were given intravenously preoperatively. The abdomen was sterilely prepped and draped. 0.5% Marcaine was used as a local anesthetic. A total of 30 cc was used. Transverse incision was made through the umbilicus a umbilical hernia was identified the sac was dissected free peritoneum was directly open 10 mm trocar was inserted the abdomen was insufflated with CO2 to a pressure of 10 mmHg pressure under direct visualization 5 mm trocars were placed in the right and left lower quadrant very minimal early left inguinal defect noted. This was not repaired at this time. Sizable large indirect right inguinal defect noted. A ilioinguinal nerve block was performed with Marcaine. The peritoneum superior lateral to the internal ring was incised carried immediately. The peritoneum was tediously completely dissected free. The sac was quite large and had to be tediously slowly sharply and bluntly dissected free. Hemostasis was obtained with electrocautery and Hem-o-fei clips. The sac however was able to be completely reduced and very good mobilization of all tissue planes were achieved. The direct indirect and femoral area well- visualized. A Bard extra-large 3D max right mesh was placed so as to cover the defect area. It nicely covered the direct indirect and femoral area. I secured it in place laterally medially and superiorly with secure strap. All that I had very good apposition. The peritoneum was then closed to itself with secure strap and Hem-o-fei clips. Complete obliteration to the mesh was achieved. The abdomen was allowed to deflate through an antiviral valve. The umbilical hernia measuring 1.5 cm in diameter was repaired with simple sutures of 0 Nurolon. Skin edges approximated opted for Monocryl subdermal stitches. Surgical glue was applied. Telfa OpSite dressings applied. Sponge and instrument and needle counts were reported to the surgeon to be correct. Specimens umbilical hernia sac and contents. Drains none. Blood loss minimal. Surgeon: Parth Boyer Type of Anesthesia: General and Local Anesthesiologist: David Dixon
--- NOTE | 2024-02-24 13:05 | PCM.POST.ANE ---
Anesthesia: Postop Eval I Current Vital Signs Temperature: 97 F Pulse Rate: 134 Blood Pressure: 125/100 Respiratory Rate: 18 Pulse Ox: 96 Oxygen Delivery Method: Room Air Assessment Airway patent: Yes Spontaneous unlabored respirations: Yes Mental status: Awake and Calm nausea: No Vomiting: No Anesthesia Complication: No Fluid Hydration Crystalloid volume administer (ml): 500 Total IV fluid infused: 500 Progress Note Anesthesia document: Postop Eval 1 completed: Yes
[2024-02-24] MEDS: Acetaminophen 325 MG Tablet 650 MG PO (14:41)
--- NOTE | 2024-02-24 15:28 | SUR.PHASEII ---
pt sat up on side of bed. family present. incision dressings dry and intact. pt sits with eyes closed. opens eyes and answers questions easily. denied being ready to walk at this time.
--- NOTE | 2024-02-24 16:41 | POSTOPAN2_ITS ---
Anesthesia Postop Eval I Sum Postop Eval Completion status Anesthesia document: Postop Eval 1 completed: Yes Anesthesia Postop Eval I Summary Anesthesia Postop Eval I Summary: Anesthesia Postop Eval I: Assessment Summary Airway patent Yes 02/24/24 13:06 RN PEDIATRIC [email or web address] Spontaneous unlabored Yes 02/24/24 13:06 RN PEDIATRIC ICU.OT respirations Mental status Awake,Calm 02/24/24 13:06 RN PEDIATRIC ICU.MDOT nausea No 02/24/24 13:06 RN PEDIATRIC ICU.MDOT Vomiting No 02/24/24 13:06 RN PEDIATRIC ICU.MDOT Anesthesia Postop Eval I: Fluid Summary Crystalloid volume administer 500 02/24/24 13:06 RN PEDIATRIC ICU.MDOT (ml) Colloids volume administered ( ml) Blood Product volume administered (ml) Total IV fluid infused 500 02/24/24 13:06 RN PEDIATRIC ICU.JERILYN Anesthesia Postop Eval I: Summary Notes Anesthesia Complication No 02/24/24 13:06 RN PEDIATRIC ICU.OT Anesthesia Complication Comment: Post-operative progress note Anesthesia: Postop Eval II Evaluation Mental status: Awake and Calm Pain Level: 1 nausea: No Vomiting: No Complications Anesthesia Complication: No
--- NOTE | 2024-02-24 16:41 | PCM.POSTANE2 ---
Anesthesia Postop Eval I Sum Postop Eval Completion status Anesthesia document: Postop Eval 1 completed: Yes Anesthesia Postop Eval I Summary Anesthesia Postop Eval I Summary: Anesthesia Postop Eval I: Assessment Summary Airway patent Yes 02/24/24 13:06 VMWARE [email or web address] Spontaneous unlabored Yes 02/24/24 13:06 VMWARE ENGINEER.OT respirations Mental status Awake,Calm 02/24/24 13:06 VMWARE ENGINEER.MDOT nausea No 02/24/24 13:06 VMWARE ENGINEER.MDOT Vomiting No 02/24/24 13:06 VMWARE ENGINEER.MDOT Anesthesia Postop Eval I: Fluid Summary Crystalloid volume administer 500 02/24/24 13:06 VMWARE ENGINEER.MDOT (ml) Colloids volume administered ( ml) Blood Product volume administered (ml) Total IV fluid infused 500 02/24/24 13:06 VMWARE [email or web address] Anesthesia Postop Eval I: Summary Notes Anesthesia Complication No 02/24/24 13:06 VMWARE ENGINEER.OT Anesthesia Complication Comment: Post-operative progress note Anesthesia: Postop Eval II Evaluation Mental status: Awake and Calm Pain Level: 1 nausea: No Vomiting: No Complications Anesthesia Complication: No
--- NOTE | 2024-02-24 17:38 | SUR.PHASEII ---
butcher cath order given by dr fabian. pt to remove at home or at office on tuesday.
--- NOTE | 2024-02-24 18:32 | SUR.PHASEII ---
16fr butcher cath inserted. 550ml yellow urine returned. cath secure placed. taught by demonstration how to cut port to remove butcher. to remove butcher on tue morning. told her to call md if pt not able to void 6hrs after removing butcher. verbalized understanding. able to repeat instructions given to her. pts abdominal dressings dry and intact.
== END 2024-02-24 18:39 | disposition home or self-care (01) ==
LOC: SDC 06:47 → AC 06:49
PROVIDERS: PCP Family Medicine; Referring Provider Surgery; Visit Provider Surgery
PROC: (CPT 49650; principal; 2024-02-24 08:50)
DX: K40.90 Unilateral inguinal hernia, without obstruction or gangrene, not specified as recurrent (principal); I48.11 Longstanding persistent atrial fibrillation; K42.9 Umbilical hernia without obstruction or gangrene; Z87.891 Personal history of nicotine dependence; Z79.01 Long term (current) use of anticoagulants; E78.00 Pure hypercholesterolemia, unspecified; Z79.899 Other long term (current) drug therapy
CPT/HCPCS: 49505; 00830; 36415; 36416; 80048; 85027; 85610; 88302; 93005; J7120; C1781; J2405

== ENCOUNTER 2024-12-22 09:06 | Emergency (ER) | payer MEDICARE, SELFPAY ==
[2024-12-22 09:07] VITALS: BP 121/81; PULSE 55; RESP 16; TEMP 37; O2SAT 98; BMI 23.0
--- NOTE | 2024-12-22 10:19 | RAD_ITS ---
EXAM: XR Left Foot Complete, 3 or More Views CLINICAL INDICATION: PAIN TECHNIQUE: Frontal, lateral and oblique views of the left foot. COMPARISON: No relevant prior studies available. FINDINGS: BONES/JOINTS: See below. SOFT TISSUES: Soft tissue swelling without acute fracture. No radiopaque foreign body. RAD/Foot min 3 Views IMPRESSION: 1. Soft tissue swelling without acute fracture. 2. If symptoms persist, repeat radiograph in 10-14 days recommended. Reading Location: [id number]
[2024-12-22 10:46] LABS: Absolute Lymphocyte Count 1.46 X10^3/uL (0.83-4.51); Absolute Neutrophil Count 6.5 X10^3/uL (2.0-7.7); Basophil# 0.06 X10^3/uL; Basophil% 0.7 % (0-1); Eosinophil# 0.11 X10^3/uL; Eosinophils% 1.2 % (0-5); Hematocrit 41.5 % (40-54); Hemoglobin 13.9 g/dL (13.0-16.5); Lymphocyte # 1.46 X10^3/ul (0.83-4.51); Lymphocyte % 16.2 % (19-41); Mean Corp Hgb Conc 33.5 g/dL (32-36); Mean Corpuscular Hgb 31.2 pg (27.0-32.0); Mean Corpuscular Volume 93.3 fL (80-94); Mean Platelet Vol. 9.7 fl (6.2-12.0); Monocyte# 0.85 X10^3/uL; Monocyte% 9.4 % (0-10); NRBC Flagged by Analyzer 0 % (0-5); Neutrophil % 72.3 % (47-70); Platelet Count 160 K/mm3 (150-450); RBC Distribution Width CV 12.6 % (11.6-14.6); RBC Distribution Width SD 43.5 fl (35.1-43.9); Red Blood Count 4.45 M/mm3 (4.6-6.2)
[2024-12-22 10:51] LABS: International Normalized Ratio 2.3; Prothrombin Time (Protime)PT. 25.4 SECONDS (11.7-14.9)
--- NOTE | 2024-12-22 10:57 | ED.VIS.LOWEX ---
HPI History of Present Illness Chief Complaint: Wound Check Informant: patient and family Narrative Narrative: Patient is 84-year-old male with history of chronic anticoagulation on Coumadin secondary to atrial fibrillation, hyperlipidemia and dementia presenting with for concern of increased left foot pain and color change. notes that his feet are often discolored but over the past few weeks he has had redness around his first MTP. Last night in the middle of the night he started moaning and complaining of increased foot pain. He had Tylenol last night. He denies any trauma or injury. Denies any history of gout. No fever or chills reported. Is otherwise been at his baseline. No recent medication changes reported. 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 Obstructive sleep apnea Hyperlipidemia Home Medications ?Medication ?Instructions ?Recorded ?Last Taken ?Type donepezil 5 mg tablet 5 mg PO QHS MEMORY 06/01/13 05/25/21 History lactobacillus combination no.8 3 1 cap PO QDAY SUPPLEMENT 03/08/18 05/25/21 History billion cell capsule (Adult Probiotic) multivitamin 1 cap PO QDAY SUPPLEMENT 03/08/18 05/25/21 History omega-3 fatty acids 1,000 mg 1,000 mg PO QDAY SUPPLEMENT 03/08/18 05/25/21 History capsule (Fish Oil Concentrate) simvastatin 10 mg tablet 10 mg PO QPM CHOLESTEROL 03/08/18 05/25/21 History vitamin E (dl, acetate) 180 mg 400 unit PO DAILY 03/20/19 05/25/21 History (400 unit) capsule vitamins-lipotropics 200 mg-100 mg 1 tab PO DAILY 03/20/19 05/25/21 History tablet (Lipo-Flavonoid Plus) selenium 100 mcg tablet 100 mcg PO DAILY #1 TAB 04/18/20 05/25/21 Rx calcium 400 mg 1 tab PO DAILY 10/24/20 05/25/21 History (carbonate)-magnesium 167 mg (oxide)-D3 133 unit tablet latanoprost 0.005 % eye drops 1 drp EACH EYE QHS 05/26/21 05/25/21 History cholestyramine (with sugar) 4 gram 1 ea PO DAILY 04/13/22 Unknown History powder for susp in a packet warfarin 5 mg tablet (Coumadin) 5 mg PO .COMPLEX BLOOD THINNER 04/13/22 02/18/24 History dorzolamide 22.3 mg-timolol 6.8 1 drp ophthalmic (eye) BID 05/10/23 Unknown History mg/mL eye drops diltiazem HCl 120 mg 120 mg PO QHS HEART #90 caps 01/09/24 02/23/24 Rx capsule,extended release 24 hr cholecalciferol (vitamin D3) 25 25 mcg PO DAILY 02/15/24 Unknown History mcg (1,000 unit) capsule (Vitamin D3) cefadroxil 500 mg capsule 500 mg PO BID #20 caps 12/22/24 Unknown Rx Allergy/AdvReac Type Severity Reaction Status Date / Time bee venom protein (honey bee) Allergy Severe Anaphylaxis Verified 12/22/24 09:07 Sulfa (Sulfonamide Allergy Severe Hives Verified 12/22/24 09:07 Antibiotics) atorvastatin (From Lipitor) AdvReac Severe Myalgias, Verified 12/22/24 09:07 Rash rivastigmine (From Exelon) AdvReac Severe Mental Verified 12/22/24 09:07 status change Family History Father Cancer lung Grandfather CAD (coronary artery disease) Surgical History S/P inguinal hernia repair History of colonoscopy with polypectomy Hx of excision of mass History of appendectomy History of colonoscopy History of cataract surgery Social History Smoking Status: Former smoker how long ago did patient quit smokin + years ago alcohol intake: current Alcohol type: beer substance use type: does not use caffeine: Yes Type: coffee Number of servings: 4 ROS ROS ED Constitutional Constitutional ED: Denies chills or fever(s) Cardiovascular Cardiovascular: Denies chest pain Respiratory/Chest Respiratory/Chest: Denies cough or dyspnea Gastrointestinal Gastrointestinal: Denies nausea or vomiting Musculoskeletal Musculoskeletal: Reports other Details: left foot pain Integumentary Reports rash Neurologic Neurologic: Denies paresthesias or weakness Hematologic/Lymphatic Hematologic/Lymphatic: Reports easy bleeding, easy bruising and other Details: on coumadin EXAM Physical Exam Const Vital Signs: 12/22/24 09:07 12/22/24 11:07 12/22/24 12:15 Temperature 98.6 F 98.7 F Temperature Source Oral Pulse Rate 55 L 66 62 Respiratory Rate 16 16 16 Blood Pressure 121/81 H 116/71 115/65 Blood Pressure Mean 94 86 81 Pulse Ox 98 95 98 Oxygen Delivery Method Room Air Room Air Positive well nourished and well developed General Appearance ED: well developed and NAD HEENT Reports moist mucous membranes Neck full ROM Chest Wall inspection of chest normal and palpation of chest normal Resp normal respiratory effort Cardio regular rate and regular rhythm Cardio Narrative: 2+ DP pulses Extremity full ROM Extremity Narrative: No peripheral edema appreciated. Pain with range of motion of the left great toe. No short arc range of motion pain. There is no obvious effusion of the joints present. Tenderness palpation over the first MTP joint. Neuro moves all extremities and no sensory deficits noted Sensorium / Orientation: alert Motor Exam: Negative for general weakness Psych mental status grossly normal Skin Skin Narrative: Erythema and warmth of the left foot most pronounced over the first MTP but extending laterally across all of the MTPs. No associated lymphangitic streaking. Mild erythema that is moving proximately to the midfoot. No crepitus. No embolic lesions appreciated. MDM MDM MDM Narrative Medical decision making narrative: Patient evaluated for increased pain to his left foot. He said redness of his foot for 1 to 2 weeks. No other symptoms. History slightly limited as patient does have dementia but he is quite appropriate and answers questions reasonably. Differential includes cellulitis, gout or trauma. He does not have a rash consistent with shingles. He does have associated warmth and redness but overall is well-appearing with no systemic symptoms. Is he is on Coumadin has been perform arthrocentesis for gout. In addition family does not want this done due to discomfort. This seems reasonable given the patient's age and dementia. CBC is normal with no leukocytosis or left shift. Uric acid while it be normal does not exclude the possibility of gout I feel makes this less likely. His CRP is mildly elevated at 9.07. INR is therapeutic at 2.3. BMP otherwise normal. Discussed with patient will apparently treat him for cellulitis at this time. X-ray of the foot reviewed by myself as well as radiology shows soft tissue swelling with no acute fracture. Discussed with that he should continue to have Tylenol for pain. In the ER patient only wants Tylenol for pain. He is ambulatory in the emergency room at time of discharge. They are comfortable with outpatient treatment at this time. Overall he is well-appearing and I do not think requires admission. Discussed that still possible that it could be gout and they will follow-up with podiatry. His states she has a podiatry appointment with Dr. Irby in [place] on Tuesday and she will see if he can take her spot for the appointment. Otherwise is given referral for our podiatry on-call, Dr. Delgado. Given return precautions emergency room. Patient and family agreeable this plan of care. Lab Data Attestation: I reviewed the patient's lab results. Labs: Laboratory Results - last 24 hr 12/22/24 10:32 WBC 9.0 RBC 4.45 L Hgb 13.9 Hct 41.5 MCV 93.3 MCH 31.2 MCHC 33.5 RDW Std Deviation 43.5 RDW Coeff of Rosaura 12.6 Plt Count 160 MPV 9.7 Immature Gran % (Auto) 0.200 Neut % (Auto) 72.3 H Lymph % (Auto) 16.2 L [place] % (Auto) 9.4 Eos % (Auto) 1.2 Baso % (Auto) 0.7 Absolute Neuts (auto) 6.5 Absolute Lymphs (auto) 1.46 Nucleated RBC % 0 PT 25.4 H INR 2.3 Sodium 139 Potassium 4.3 Chloride 104 Carbon Dioxide 25.9 Anion Gap 9 BUN 15 Creatinine 1.05 Estim Creat Clear Calc 55.44 Est GFR (MDRD) Non-Af 70 BUN/Creatinine Ratio 14.6 Glucose 95 Uric Acid 5.8 Calcium 9.5 C-React Prot Ext Range 9.07 H Radiography Diagnostic Testing: Clinical Impression(s) from Imaging Studies Foot X-Ray 12/22/24 10:19 IMPRESSION: 1. Soft tissue swelling without acute fracture. 2. If symptoms persist, repeat radiograph in 10-14 days recommended. Reading Location: [facility] Discharge Plan Triage Chief Complaint: Wound Check ED Provider: Radha Cook Dx/Rx/DC Orders Clinical Impression: Acute pain of left foot, prison current use of anticoagulant, Cellulitis of foot Instructions: ED Cellulitis Prescriptions: New cefadroxil 500 mg capsule 500 mg PO BID Qty: 20 0RF No Action simvastatin 10 mg tablet 10 mg PO QPM omega-3 fatty acids [Fish Oil Concentrate] 1,000 mg capsule 1,000 mg PO QDAY lactobacillus combination no.8 [Adult Probiotic] 3 billion cell capsule 1 cap PO QDAY multivitamin capsule 1 cap PO QDAY warfarin [Coumadin] 5 mg tablet 5 mg PO .COMPLEX Rx Instructions: 5 mg PO Tuesday and Tuesday; 2.5 mg all other days a week Managed by Dr. Gonsalez vitamin E (dl, acetate) 400 unit capsule 400 unit PO DAILY Lipo-Flavonoid Plus 200-100 mg tablet 1 tab PO DAILY selenium 100 mcg tablet 100 mcg PO DAILY Qty: 1 0RF calcium carb-mag oxide-vit D3 400-167-133 mg-mg-unit tablet 1 tab PO DAILY cholestyramine (with sugar) 4 gram powder in packet 1 ea PO DAILY dorzolamide-timolol 22.3-6.8 mg/mL drops 1 drp ophthalmic (eye) BID Patient Comments: INSTILL ONE DROP IN THE LEFT EYE TWICE DAILY donepezil 5 MG tablet 5 mg PO QHS latanoprost 0.005 % drops 1 drp EACH EYE QHS Patient Comments: instill ONE DROP IN EACH EYE AT BEDTIME cholecalciferol (vitamin D3) [Vitamin D3] 25 mcg (1,000 unit) capsule 25 mcg PO DAILY diltiazem HCl 120 mg capsule,extended release 24hr 120 mg PO QHS Qty: 90 3RF Primary Care Provider: Asa Gonsalez Referrals: Misael Delgado DPM [Med Staff - Active Staff] - Asa Gonsalez MD [Primary Care Provider] - Angela Jones DPM [Med Staff - Active Staff] - Activity Restrictions/Additional Instructions: Will treat the redness and pain like cellulitis. It is possible it could be gout as well but I think cellulitis is more likely and needs to be treated. Please follow-up with podiatry for wound check over the next 2 to 3 days. Take Tylenol as needed for pain. Rest the foot and elevate it. Return if you have progression or worsening your symptoms especially develop a fever chills or worsening redness Print Language: [place] Citizen Disposition Disposition: Home, Self Care Discharge Date/Time: 12/22/24 12:42
[2024-12-22] MEDS: Acetaminophen 325 MG Tablet 650 MG PO (11:05)
[2024-12-22 11:07] VITALS: BP 116/71; PULSE 66; RESP 16; O2SAT 95
[2024-12-22 11:16] LABS: Anion Gap 9 (5-15); BUN 15 mg/dL (4-19); BUN/Creat Ratio 14.6 RATIO (10-20); CRP 9.07 mg/L (0.0-3.0); Calcium,Total 9.5 mg/dL (7.6-11.0); Carbon Dioxide 25.9 mmol/L (21.0-32.0); Chloride 104 mmol/L (98-108); Creatinine, Serum 1.05 mg/dL (0.70-1.20); EST Glomerular Filtration Rate 70 (>60); Estimated Creatinine Clearance 55.44 ml/min (50-250); Glucose 95 mg/dL (70-99); Potassium 4.3 mmol/L (3.3-5.1); Sodium Level 139 mmol/L (133-145); Uric Acid 5.8 mg/dL (3.5-7.2)
[2024-12-22] MEDS: Cefadroxil 500 MG CAPSULE PO (12:13)
[2024-12-22 12:15] VITALS: BP 115/65; PULSE 62; RESP 16; TEMP 37.1; O2SAT 98
== END 2024-12-22 12:42 | disposition home or self-care (01) ==
PROVIDERS: Emergency Provider Emergency Medicine; PCP Family Medicine; Visit Provider Emergency Medicine
DX: L03.116 Cellulitis of left lower limb (principal); F03.90 Unspecified dementia, unspecified severity, without behavioral disturbance, psychotic disturbance, mood disturbance, and anxiety; I48.11 Longstanding persistent atrial fibrillation; E78.00 Pure hypercholesterolemia, unspecified; Z79.01 Long term (current) use of anticoagulants; Z79.899 Other long term (current) drug therapy; Z87.891 Personal history of nicotine dependence
CPT/HCPCS: 73630; 80048; 84550; 85025; 85610; 86140; 99283; A4216